=== PATIENT | female | born 1980 | race African-American/Black ===

== ENCOUNTER 2016-11-19 05:00 | Day surgery (SDC) | payer OTHER ==
[2016-10-31 12:02] VITALS: BMI 30.2
[2016-11-19] MEDS ORDERED: DEXAMETHASONE SOD PHOSPHATE 4 MG/1 ML VIAL ONE ×2 (07:58→08:29)
[2016-11-19] MEDS ORDERED: PROPOFOL 20 ML ONE ×2 (07:58→09:01)
[2016-11-19] MEDS ORDERED: ROCURONIUM BROMIDE 50 MG/5 ML VIAL ONE (07:58)
[2016-11-19] MEDS ORDERED: MIDAZOLAM HCL 2 MG/2 ML SINGLE DOSE VIAL ONE (07:59)
[2016-11-19] MEDS ORDERED: IBUPROFEN 800 MG/8 ML IJ IVPB PRN (08:16)
[2016-11-19] MEDS ORDERED: ACETAMINOPHEN 325 MG TABLET (FP) PO PRN (08:16)
--- NOTE | 2016-11-19 08:16 | HP ---
History & Physical Update - History History: No Change - Physical Physical: No Change - Assessment Assessment: No Change - Plan Plan: No Change (desires sterilization - for bilateral salpingectomy)
[2016-11-19] MEDS ORDERED: BUPIVACAINE HCL/PF 0.5% (5MG/ML) 10 ML VIAL ONE (08:23)
[2016-11-19] MEDS ORDERED: LACTATED RINGERS SOLUTION 1,000 ML IV SCH ×2 (08:30→09:30)
[2016-11-19] MEDS ORDERED: BUPIVACAINE HCL/PF 0.5% (5MG/ML) 10 ML VIAL IJ ONE (08:50)
[2016-11-19] MEDS ORDERED: GLYCOPYRROLATE 0.2 MG/1 ML VIAL ONE (08:54)
[2016-11-19] MEDS ORDERED: NEOSTIGMINE METHYLSULFATE 0.5 MG/ML - 10 ML MDV ONE (08:54)
[2016-11-19] MEDS ORDERED: ONDANSETRON 4 MG/2 ML VIAL IVPUSH PRN (09:17)
[2016-11-19] MEDS ORDERED: PROMETHAZINE HCL 25 MG/1 ML VIAL IVPUSH PRN (09:17)
[2016-11-19] MEDS ORDERED: oxyCODONE HCL 5 MG TABLET PO PRN (09:17)
--- NOTE | 2016-11-19 09:23 | SURG ---
Surgery Pharmacy Benefit Manager Note Pharmacy Benefit Manager: Cydney Wang PA-C Date of Service: 11/19/16 Diagnosis: desired sterilization Procedure: bilateral laparoscopic salpingectomy I was present for the entirety of the operative procedure. For further detail, please refer to operative report. Visit type - Case Type Case Type: Scheduled Admission - Emergency Emergency Visit: No - New patient This patient is new to me today: Yes Date on this admission: 11/19/16 - Critical Care Critical Care patient: No
--- NOTE | 2016-11-19 11:47 | OP ---
Operative Note - Note: Operative Date: 11/19/16 Pre-Operative Diagnosis: desire for permanent sterilization Operation: laparoscopic bilateral salpingectomy Surgeon: Jeniffer Clarke Cook Apprentice Pastry: Cydney Wang Anesthesiologist/CIVIL PROCESS SERVER: Ina Perla Anesthesia: General Specimens Removed: bilateral fallopian tubes Estimated Blood Loss (mls): 10 Operative Report Dictated: Yes
[2016-11-19 13:22] VITALS: BP 110/68; PULSE 74; TEMP 98.6
--- NOTE | 2016-11-20 12:34 | PATH ---
Surgical Pathology Report Patient Name: NATALIA PARHAM [facility]. Rec. #: [id number] /Age/Gender: 1980 (Age: 36) / F Account: [id number] Location: [facility] SURGICAL Taken: 11/19/2016 Received: 11/19/2016 Reported: 11/20/2016 Physicians: Jeniffer Clarke M.D. Specimen(s) Received A: RIGHT FALLOPIAN TUBE B: LEFT FALLOPIAN TUBE Clinical History Voluntary sterilization Final Diagnosis A. RIGHT FALLOPIAN TUBE, SALPINGECTOMY: FULL LUMINAL PORTION OF UNREMARKABLE FALLOPIAN TUBE, INCLUDING FIMBRIATED END. B. LEFT FALLOPIAN TUBE, SALPINGECTOMY: FULL LUMINAL PORTION OF FALLOPIAN TUBE INCLUDING FIMBRIATED END AND BENIGN SEROUS PARATUBAL CYST Electronically Signed Moose Perez M.D. Gross Description A. Received in formalin labeled "right fallopian tube," is a 6 cm in length fimbriated fallopian tube. The outer surface is allen purple and smooth. Sectioning reveals an unremarkable lumen. Biochemistry Teacher sections are submitted in 2 cassettes as follows: 1-fimbria; 2-cross sections of fallopian tube. B. Received in formalin labeled "left fallopian tube," is a 4.5 cm in length fimbriated fallopian tube. The outer surface is allen purple and smooth with a focal 0.6 cm in greatest dimension paratubal cyst attached to the fimbria. Sectioning reveals an unremarkable lumen. Biochemistry Teacher sections are submitted in 2 cassettes as follows: 1-fimbria with paratubal cyst; 2-cross sections of fallopian tube. 11/19/201611/19/2016
--- NOTE | 2016-11-20 16:58 | OP ---
DATE OF OPERATION: 11/19/2016 PREOPERATIVE DIAGNOSIS: Desire for permanent sterilization. POSTOPERATIVE DIAGNOSIS: Desire for permanent sterilization. PROCEDURE: Laparoscopic bilateral salpingectomy. SURGEON: Jeniffer Clarke M.D. CLINICAL LAW PROFESSOR: Jazmín Singleton ESTIMATED BLOOD LOSS: Minimal. COMPLICATIONS: None. SPECIMEN: Included bilateral fallopian tube sent to pathology for permanent evaluation. ANESTHESIA: General. ANESTHESIOLOGIST: Ina Perla M.D. DISPOSITION: Stable to PACU. COUNTS: Sponge, needle, and instrument count reported to be correct. BRIEF HISTORY AND PROCEDURE: Patient is a 36-year-old female who had been seen in the office with desire for permanent sterilization. The patient was counseled on her options and elected to undergo a laparoscopic bilateral salpingectomy. Consents were signed in the office which were then reconfirmed upon admission of November 19, 2016 on the day that she was admitted to [facility]. After consents were confirmed, the patient was taken back to the operating room. She was given general anesthesia by Dr. Perla, and she was then placed in the dorsal lithotomy position. A Viera catheter was placed under sterile conditions, she was then prepped and draped in the usual sterile fashion. A hard timeout was performed. A 5-mm skin incision was then placed in the umbilicus and Veress needle was placed intraabdominally. The abdomen was insufflated with CO2 gas, a trocar was then inserted through the 5-mm port and a camera was inserted in the abdomen. Next, two bilateral lower quadrant 5-mm ports were placed under direct visualization. The patient was placed in Trendelenburg position. The right fallopian tube was identified, traced to its fimbriated end , elevated, and dissected off its attachment to the ovary, mesosalpinx, and the uterus using the Ligasure device. The same was repeated with the left fallopian tube. Both fallopian tubes were removed from the 5-mm trocar site without difficulty under direct visualization. Excellent hemostasis was achieved at the surgical sites. Bilateral ureters were inspected and noted to be within normal limits. Bilateral ovaries were inspected and noted to be within normal limits. Inspection of the upper abdomen revealed no intraabdominal pathology. Next, the abdomen was desufflated. The trocars were removed. All instruments had been removed from the abdomen under direct visualization. The counts were reported to be correct. The incisions were reapproximated using Biosyn suture and then Dermabond skin glue. Sponge, needle and instrument counts were reported to be correct at the end of the case. The patient tolerated the procedure well, is recovering in stable condition in PACU after the procedure. JENIFFER CLARKE DO /[id number] MTDD
== END 2016-11-19 11:45 | disposition home or self-care (01) ==
LOC: JASU-SURG 05:00
PROVIDERS: ATTEND Obstetrics & Gynecology
PROC: 0U574ZZ Destruction of Bilateral Fallopian Tubes, Percutaneous Endoscopic Approach (ICD-10-PCS; principal; 2016-11-19 08:00)
DX: Z30.2 Encounter for sterilization (principal)
CPT/HCPCS: 36415; 84702; 86850; 86900; 86901; 88302-TC; 94760

== ENCOUNTER 2017-03-25 10:42 | Emergency (ER) | payer OTHER ==
[2017-03-25 10:50] VITALS: BP 137/74; PULSE 86; TEMP 98; BMI 33.3
[2017-03-25 12:07] LABS: URINE APPEARANCE SLCLOUDY; URINE BILIRUBIN NEGATIVE (NEGATIVE); URINE BLOOD 3+ (NEGATIVE); URINE COLOR YELLOW; URINE GLUCOSE (UA) NEGATIVE (NEGATIVE); URINE KETONE NEGATIVE (NEGATIVE); URINE NITRITE NEGATIVE (NEGATIVE); URINE PROTEIN NEGATIVE (NEGATIVE); URINE UROBILINOGEN NEGATIVE mg/dL (0.2-1.0)
[2017-03-25 12:11] LABS: URINE LEUK ESTERASE 2+ (NEGATIVE)
--- NOTE | 2017-03-25 12:20 | PDOC ---
History of Present Illness - General Chief Complaint: Pain Stated Complaint: BACK PAIN Time Seen by Provider: 03/25/17 11:49 History Source: Patient Exam Limitations: No Limitations - History of Present Illness Initial Comments: 03/25/17 12:44 My Chief complaint: Lower back pain and lower abdominal discomfort History of present illness: Patient is a 36-year-old female with no significant medical history here today complaining of lower back pain with lower abdominal discomfort 3 days. Patient reports having slight dysuria at the end of urination and frequency 3 days. Patient reports that she finished her menstrual cycle yesterday and has minimal bleeding when wiping. Patient also reports having urgency. Patient denies any nausea, vomiting or any chills or fever. Patient denies any radiation of pain down the legs or any saddle anesthesia or incontinency. Timing/Duration: intermittent Severity: moderate Associated Symptoms: reports: other (lower back and lower pelvic pressure intermittently for 3 days) Past History - Past Medical History Allergies/Adverse Reactions: Allergies Allergy/AdvReac Type Severity Reaction Status Date / Time No Known Allergies Allergy Verified 03/25/17 10:50 Home Medications: Ambulatory Orders Cephalexin [Keflex] 500 mg PO BID #14 capsule 03/25/17 Phenazopyridine HCl [Pyridium] 200 mg PO TID #6 tablet 03/25/17 Diabetes: Yes (gestational diabetes 1st ) - Reproductive History (#): 3 Para: 2 - Psycho/Social/Smoking Cessation Hx Anxiety: No Suicidal Ideation: No Smoking Status: No Smoking History: Never smoked Have you smoked in the past 12 months: No Number of Cigarettes Smoked Daily: 0 Information on smoking cessation initiated: No Hx Alcohol Use: No Drug/Substance Use Hx: No Substance Use Type: None Review of Systems - Review of Systems Able to Perform ROS?: Yes Constitutional: No: Symptoms Reported HEENTM: No: Symptoms Reported, Dental Problems Cardiac (ROS): No: Symptoms Reported ABD/GI: No: Symptoms Reported : Yes: Dysuria, Frequency, Urgency. No: Flank Pain, Hematuria, Incontinence, Pain Musculoskeletal: No: Symptoms Reported Integumentary: No: Symptoms Reported Neurological: No: Symptoms reported *Physical Exam - Vital Signs Last Vital Signs Temp Pulse Resp BP Pulse Ox 98 F 86 18 137/74 99 03/25/17 10:44 03/25/17 10:44 03/25/17 10:44 03/25/17 10:44 03/25/17 10:44 - Physical Exam General Appearance: Yes: Appropriately Dressed Respiratory/Chest: positive: Lungs Clear, Normal Breath Sounds. negative: Chest Tender, Respiratory Distress Cardiovascular: positive: Regular Rhythm, Regular Rate, S1, S2 Gastrointestinal/Abdominal: positive: Normal Bowel Sounds, Soft. negative: Tender, Organomegaly, Distended, Guarding, Rebound, Tenderness Musculoskeletal: positive: Normal Inspection. negative: CVA Tenderness, CVA Tenderness (R), CVA Tenderness (L), Vertebral Tenderness Integumentary: positive: Normal Color Neurologic: positive: Alert, Responsive ED Treatment Course - ADDITIONAL ORDERS Additional order review: Laboratory Results 03/25/17 11:40 Urine Color Yellow Urine Appearance Slcloudy Urine pH 5.0 Urine Protein Negative Urine Glucose (UA) Negative Urine Ketones Negative Urine Blood 3+ H Urine Nitrite Negative Urine Bilirubin Negative Urine Urobilinogen Negative Ur Leukocyte Esterase 2+ H Urine HCG, Qual Negative Medical Decision Making - Medical Decision Making 03/25/17 12:46 Patient is a 36-year-old female with no significant medical history here today complaining of lower back pain with lower abdominal discomfort 3 days. Patient reports having slight dysuria at the end of urination and frequency 3 days. Patient reports that she finished her menstrual cycle yesterday and has minimal bleeding when wiping. Patient also reports having urgency. Patient denies any nausea, vomiting or any chills or fever. Patient denies any radiation of pain down the legs or any saddle anesthesia or incontinency. ACUTE CYSTITIS PLAN: KEFLEX 500MG BID FOR 7 DAYS PYRDIUM 200 MG TID FOR 2 DAYS URINALYSIS URINE C & S FOLLOW UP WITH PCP FOR REPEAT URINE TESTING AT END OF TREATMENT 03/25/17 12:48 *DC/Admit/Observation/Transfer Diagnosis at time of Disposition: Cystitis - Discharge Dispostion Disposition: HOME Condition at time of disposition: Stable - Patient Instructions Additional Instructions: Follow-up with your primary care provider for repeat urinanalysis after treatment is finished Drink A lot a fluids especially pure cranberry juice Return to emergency room if any fever, chills, or any new symptoms develop Patient voiced understanding of discharge instructions and all questions were answered
[2017-03-25 12:24] LABS: URINE MUCUS RARE; URINE RBC 3 /hpf (0-3); URINE WBC 4 /hpf (3-5)
== END 2017-03-25 12:49 | disposition home or self-care (01) ==
LOC: JERFT 10:42
DX: N30.00 Acute cystitis without hematuria (principal)
CPT/HCPCS: 81003; 81015; 84703; 87077; 87086; 87186; 99281-25

== ENCOUNTER 2017-05-07 01:44 | Emergency (ER) | payer OTHER ==
[2017-05-07 02:01] VITALS: BMI 34.9
--- NOTE | 2017-05-07 02:27 | PDOC ---
History of Present Illness - General Chief Complaint: Ear Problem Stated Complaint: SORE THROAT, EAR PAIN Time Seen by Provider: 05/07/17 02:04 History Source: Patient Exam Limitations: No Limitations - History of Present Illness Initial Comments: 05/07/17 02:21 36yo Female patient presents to ED c/o bilateral ear pain and throat pain beginning last . Patient states everyone in her household is sick with a cold and cough. She states symptoms not getting any better, so she came in for evaluation. She denies fever, CP, Abd pain, n/v/d, diff breathing or any other complaints at this time. Timing/Duration: constant Severity: mild Modifying Factors: worse with: cold therapy, eating, immobilization, medication , movement, rest, other Associated Symptoms: denies: denies symptoms, chest pain, cough, diaphoresis, fever/chills, headaches, loss of appetite, malaise, nausea/vomiting, rash, seizure, shortness of breath, syncope, weakness, other Past History - Travel Traveled outside of the country in the last 30 days: No Close contact w/someone who was outside of country & ill: No - Past Medical History Allergies/Adverse Reactions: Allergies Allergy/AdvReac Type Severity Reaction Status Date / Time No Known Allergies Allergy Verified 05/07/17 01:57 Home Medications: Ambulatory Orders Cephalexin [Keflex] 500 mg PO BID #14 capsule 03/25/17 Phenazopyridine HCl [Pyridium] 200 mg PO TID #6 tablet 03/25/17 Amoxicillin - [Amoxicillin 500mg Capsule -] 500 mg PO BID #14 capsule 05/07/17 Ibuprofen 600 mg PO Q6H PRN #20 tablet 05/07/17 Diabetes: Yes (gestational diabetes 1st ) - Reproductive History (#): 3 Para: 2 - Suicide/Smoking/Psychosocial Hx Smoking Status: No Smoking History: Never smoked Have you smoked in the past 12 months: No Number of Cigarettes Smoked Daily: 0 Information on smoking cessation initiated: No Hx Alcohol Use: No Drug/Substance Use Hx: No Substance Use Type: None Review of Systems - Review of Systems Able to Perform ROS?: Yes Is the patient limited Polish proficient: No Constitutional: No: Chills, Fever HEENTM: Yes: Ear Pain, Throat Pain. No: Mouth Pain, Mouth Swelling All Other Systems: Reviewed and Negative *Physical Exam - Vital Signs Last Vital Signs Temp Pulse Resp BP Pulse Ox 96 H 14 123/82 95 05/07/17 01:57 05/07/17 01:57 05/07/17 01:57 05/07/17 01:57 - Physical Exam General Appearance: Yes: Nourished, Appropriately Dressed. No: Apparent Distress, Mild Distress, Moderate Distress, Severe Distress HEENT: positive: EOMI, LILIA, Normal ENT Inspection, Normal Voice, Symmetrical, TMs Normal, Pharynx Normal, Nasal Congestion, Sinus Tenderness (Mild). negative : Pharyngeal Erythema, Tonsillar Exudate, Tonsillar Erythema, Rhinorrhea, TM Bulging, TM Dull, TM Erythema Neck: positive: Trachea midline, Normal Thyroid, Supple. negative: Rigid, Stridor, Lymphadenopathy (R), Lymphadenopathy (L), Rigidity, Tender lateral, Tender midline Respiratory/Chest: positive: Lungs Clear, Normal Breath Sounds. negative: Chest Tender, Respiratory Distress, Accessory Muscle Use, Labored Respiration, Rapid RR Cardiovascular: positive: Regular Rhythm, Regular Rate Musculoskeletal: positive: Normal Inspection. negative: CVA Tenderness Extremity: positive: Normal Capillary Refill, Normal Inspection, Normal Range of Motion. negative: Pedal Edema, Swelling, Calf Tenderness, Erythema, Inflammation Integumentary: positive: Normal Color, Dry, Warm Neurologic: positive: marketing and development coordinator II-XII NML intact, Fully Oriented, Alert, Normal Mood/ Affect, Normal Response, Motor Strength 5/5 *DC/Admit/Observation/Transfer Diagnosis at time of Disposition: Pharyngitis Qualifiers: Pharyngitis/tonsillitis etiology: other specified organisms Qualified Code(s): J02.8 - Acute pharyngitis due to other specified organisms; J02.8 - Acute pharyngitis due to other specified organisms - Discharge Dispostion Disposition: HOME Condition at time of disposition: Stable Admit: No - Prescriptions Prescriptions: Amoxicillin - [Amoxicillin 500mg Capsule -] 500 mg PO BID #14 capsule Ibuprofen 600 mg PO Q6H PRN #20 tablet PRN Reason: Mild Pain - Patient Instructions Printed Discharge Instructions: DI for Viral Pharyngitis Additional Instructions: Follow up with your primary care provider. Take medications as prescribed. Drink plenty water. Gargle with salt water twice a day. Print Language: WELSH
[2017-05-07] MEDS ORDERED: IBUPROFEN 600 MG TABLET (FP) PO ONE ×2 (02:29→02:41)
[2017-05-07] MEDS ORDERED: AMOXICILLIN 500 MG CAPSULE (FP) PO ONE (02:29)
[2017-05-07] MEDS ORDERED: AMOXICILLIN 500 MG CAPSULE (FP) ONE (02:41)
[2017-05-07 02:50] VITALS: BP 124/85; PULSE 84
== END 2017-05-07 02:51 | disposition home or self-care (01) ==
LOC: JER 01:44
DX: J02.8 Acute pharyngitis due to other specified organisms (principal)
CPT/HCPCS: 99281-25; 99282-25

== ENCOUNTER → 2020-10-12 | Day surgery (SDC) | payer OTHER ==
[2020-10-06 15:46] VITALS: BMI 30.2
[2020-10-12 09:08] VITALS: TEMP 96.9
[2020-10-12 09:58] VITALS: BP 118/85; PULSE 70
== END | disposition home or self-care (01) ==
LOC: JASU-ENDO 05:29
PROVIDERS: ATTEND Internal Medicine Gastroenterology
PROC: 0DBB8ZX Excision of Ileum, Via Natural or Artificial Opening Endoscopic, Diagnostic (ICD-10-PCS; 2020-10-12)
PROC: 0DBN8ZX Excision of Sigmoid Colon, Via Natural or Artificial Opening Endoscopic, Diagnostic (ICD-10-PCS; 2020-10-12)
PROC: 0DB98ZX Excision of Duodenum, Via Natural or Artificial Opening Endoscopic, Diagnostic (ICD-10-PCS; 2020-10-12)
PROC: 0DB78ZX Excision of Stomach, Pylorus, Via Natural or Artificial Opening Endoscopic, Diagnostic (ICD-10-PCS; 2020-10-12)
PROC: 0DBM8ZX Excision of Descending Colon, Via Natural or Artificial Opening Endoscopic, Diagnostic (ICD-10-PCS; principal; 2020-10-12 08:22)
DX: K63.5 Polyp of colon (principal); K64.8 Other hemorrhoids; K44.9 Diaphragmatic hernia without obstruction or gangrene; K29.00 Acute gastritis without bleeding; K21.9 Gastro-esophageal reflux disease without esophagitis; K56.609 Unspecified intestinal obstruction, unspecified as to partial versus complete obstruction; K63.89 Other specified diseases of intestine; K92.1 Melena; E11.9 Type 2 diabetes mellitus without complications; Z79.84 Long term (current) use of oral hypoglycemic drugs
CPT/HCPCS: 81025; 88305-TC; 88342-TC

== ENCOUNTER 2021-02-22 08:52 | Emergency (ER) | payer OTHER ==
[2021-02-22 09:17] VITALS: BP 130/79; PULSE 74; TEMP 98.2; BMI 28.3
[2021-02-22] MEDS ORDERED: ACETAMINOPHEN 325 MG TABLET (FP) ONE (10:13)
[2021-02-22] MEDS ORDERED: ACETAMINOPHEN 325 MG TABLET (FP) PO ONE (10:14)
[2021-02-22 10:21] LABS: MEAN PLT VOLUME 6.9 fl (7.5-11.1)
[2021-02-22 10:23] LABS: BASO % 1.3 % (0-2.0); EOS % 0.4 % (0-4.5); HEMATOCRIT 38.8 % (32.4-45.2); HEMOGLOBIN 13.2 GM/dL (10.7-15.3); LYMPH % 43.8 % (8-40); MEAN CELL VOLUME 73.6 fl (80-96); MONO % 7.4 % (3.8-10.2); NEUT % 47.1 % (42.8-82.8); PLATELET COUNT 463 10^3/uL (134-434); RBC 5.27 M/mm3 (3.60-5.2); RDW 19.2 % (11.6-15.6); WHITE BLOOD COUNT 6.5 K/mm3 (4.0-10.0)
[2021-02-22 10:24] LABS: EPI CELLS 19 /uL (0-25.1); HYALINE CASTS 0 /uL (0-3.1); PH,URINE 5.5 (5.0-8.0); URINE APPEARANCE CLEAR; URINE BACTERIA 320 /uL (0-1359); URINE BILIRUBIN NEGATIVE (NEGATIVE); URINE COLOR YELLOW; URINE GLUCOSE (UA) NEGATIVE (NEGATIVE); URINE KETONE 1+ (NEGATIVE); URINE LEUK ESTERASE TRACE (NEGATIVE); URINE NITRITE NEGATIVE (NEGATIVE); URINE PROTEIN NEGATIVE (NEGATIVE); URINE RBC 6 /uL (0-23.9); URINE UROBILINOGEN 0.2 mg/dL (0.2-1.0); URINE WBC 12 /uL (0-25.8)
[2021-02-22 10:27] LABS: INR 1.05 (0.83-1.09); PROTHROMBIN TIME (PATIENT) 12.9 SEC (9.7-13.0)
[2021-02-22 10:30] LABS: ACTIVATED PTT 28.6 SECONDS (25.2-36.5); CHLORIDE 105 mmol/L (98-107); SODIUM 139 mmol/L (136-145)
[2021-02-22 10:32] LABS: ALBUMIN 3.8 g/dl (3.4-5.0); ANION GAP 7 MMOL/L (8-16); BLOOD UREA NITROGEN 8.1 mg/dL (7-18); CALCIUM 9.2 mg/dL (8.5-10.1); CO2 27 mmol/L (21-32); GLUCOSE,RANDOM 81 mg/dL (74-106)
[2021-02-22 10:35] LABS: CREATININE 0.8 mg/dL (0.55-1.3); SGOT/AST 21 U/L (15-37); SGPT/ALT 26 U/L (13-61)
[2021-02-22 10:37] LABS: BILIRUBIN,TOTAL 0.4 mg/dL (0.2-1); TOT PROT 8.1 g/dl (6.4-8.2)
[2021-02-22 10:38] LABS: ALK PHOS 107 U/L (45-117)
== END 2021-02-22 12:10 ==
LOC: JER 08:52
DX: R55 Syncope and collapse (principal)
CPT/HCPCS: 36415; 71045-TC-FY; 80053; 81003; 84484; 84703; 85025; 85610; 85730; 87086; 93005; 93010; 99285-25

== ENCOUNTER 2022-01-24 01:03 | Emergency (ER) | payer OTHER ==
[2022-01-24 01:42] VITALS: BP 111/59; PULSE 85; TEMP 99; BMI 31.1
[2022-01-24] MEDS ORDERED: ACETAMINOPHEN 500 MG TABLET (FP) PO ONE (01:50)
[2022-01-24] MEDS ORDERED: ACETAMINOPHEN 500 MG TABLET (FP) ONE (01:56)
== END 2022-01-24 03:44 | disposition home or self-care (01) ==
LOC: JER 01:03
DX: U07.1 COVID-19 (principal)
CPT/HCPCS: 0241U-QW; 87651; 99283-25

== ENCOUNTER 2022-04-09 07:15 | Emergency (ER) | payer OTHER ==
[2022-04-09 07:43] VITALS: BP 100/70; PULSE 76; RESP 20; TEMP 98.7; BMI 31.1
[2022-04-09] MEDS ORDERED: IBUPROFEN 600 MG TABLET (FP) PO ONE ×3 (08:21→08:39)
[2022-04-09] MEDS ORDERED: LIDOCAINE 5% TOPICAL PATCH TP ONE (08:21)
[2022-04-09] MEDS ORDERED: LIDOCAINE 5% TOPICAL PATCH ONE (08:40)
[2022-04-09] MEDS ORDERED: LIDOCAINE PATCH REMOVAL MC ONE (22:00)
== END 2022-04-09 09:06 | disposition home or self-care (01) ==
LOC: JERFT 07:15 → JER 07:15 → JERFT 09:06
DX: M25.511 Pain in right shoulder (principal); G89.29 Other chronic pain
CPT/HCPCS: 73030-TC-RT-FY; 99284-25

== ENCOUNTER 2022-04-26 02:41 | Emergency (ER) | payer OTHER ==
[2022-04-26 02:55] VITALS: BP 109/74; PULSE 83; RESP 17; TEMP 98; BMI 31.1
[2022-04-26] MEDS ORDERED: ACETAMINOPHEN 325 MG TABLET (FP) PO ONE (03:49)
[2022-04-26] MEDS ORDERED: ACETAMINOPHEN 325 MG TABLET (FP) ONE (04:39)
== END 2022-04-26 04:42 | disposition home or self-care (01) ==
LOC: JER 02:41
DX: S06.0X0A Concussion without loss of consciousness, initial encounter (principal); W22.8XXA Striking against or struck by other objects, initial encounter
CPT/HCPCS: 99283-25

== ENCOUNTER 2023-01-07 17:47 | Emergency (ER) | payer OTHER ==
[2023-01-07 17:55] VITALS: BP 105/62; PULSE 70; RESP 18; TEMP 99.2; BMI 27.6
[2023-01-07] MEDS ORDERED: MAG HYDROX/AL HYDROX/SIMETH 30 ML UNIT-DOSE CUP PO ONE (19:02)
[2023-01-07] MEDS ORDERED: PANTOPRAZOLE 40 MG TABLET PO ONE ×2 (19:02→19:54)
[2023-01-07] MEDS ORDERED: FAMOTIDINE 20 MG TABLET PO ONE (19:03)
[2023-01-07] MEDS ORDERED: FAMOTIDINE 20 MG TABLET ONE (19:54)
[2023-01-07] MEDS ORDERED: MAG HYDROX/AL HYDROX/SIMETH 30 ML UNIT-DOSE CUP ONE (19:54)
[2023-01-07 20:31] LABS: BASO % 0.8 % (0-2.0); EOS % 1.1 % (0-4.5); HEMATOCRIT 40.4 % (32.4-45.2); HEMOGLOBIN 13.4 GM/dL (10.7-15.3); LYMPH % 55.8 % (8-40); MCH 26.5 pg (25.7-33.7); MCHC 33.1 g/dl (32.0-36.0); MEAN CELL VOLUME 80.1 fl (80-96); MEAN PLT VOLUME 7.3 fl (7.5-11.1); MONO % 6.4 % (3.8-10.2); NEUT % 35.9 % (42.8-82.8); PLATELET COUNT 412 10^3/uL (134-434); RBC 5.04 M/mm3 (3.60-5.2); WHITE BLOOD COUNT 7.1 K/mm3 (4.0-10.0)
[2023-01-07 20:44] LABS: POTASSIUM 4.8 mmol/L (3.5-5.1)
[2023-01-07 20:47] LABS: ALBUMIN 3.6 g/dl (3.4-5.0); BLOOD UREA NITROGEN 6.7 mg/dL (7-18); CALCIUM 9.3 mg/dL (8.5-10.1)
[2023-01-07 20:50] LABS: CREATININE 0.7 mg/dL (0.55-1.3)
[2023-01-07 20:53] LABS: BILIRUBIN,TOTAL 0.8 mg/dL (0.2-1); TOT PROT 7.4 g/dl (6.4-8.2)
== END 2023-01-07 21:47 | disposition home or self-care (01) ==
LOC: JER 17:47
DX: R10.13 Epigastric pain (principal); K29.50 Unspecified chronic gastritis without bleeding
CPT/HCPCS: 36415; 80053; 83690; 85025; 99283-25

== ENCOUNTER 2023-02-23 07:56 | Emergency (ER) | payer OTHER ==
[2023-02-23 08:05] VITALS: RESP 19; TEMP 98.3; BMI 27.2
[2023-02-23] MEDS ORDERED: MECLIZINE HCL 12.5 MG TABLET PO ONE ×2 (08:46→10:29)
[2023-02-23] MEDS ORDERED: SODIUM CHLORIDE 0.9% 500 ML INFUS.BAG IV ONE (08:48)
[2023-02-23] MEDS ORDERED: MECLIZINE HCL 12.5 MG TABLET ONE (09:41)
[2023-02-23 10:12] LABS: BASO % 1.1 % (0-2.0); EOS % 0.7 % (0-4.5); HEMATOCRIT 40.7 % (32.4-45.2); HEMOGLOBIN 13.5 GM/dL (10.7-15.3); LYMPH % 41.1 % (8-40); MCH 26.8 pg (25.7-33.7); MCHC 33.2 g/dl (32.0-36.0); MEAN CELL VOLUME 80.7 fl (80-96); MONO % 6.2 % (3.8-10.2); NEUT % 50.9 % (42.8-82.8); PLATELET COUNT 440 10^3/uL (134-434); RBC 5.04 M/mm3 (3.60-5.2); WHITE BLOOD COUNT 6.2 K/mm3 (4.0-10.0)
[2023-02-23 10:15] LABS: EPI CELLS 11 /uL (0-25.1); HYALINE CASTS 0 /uL (0-3.1); PH,URINE 7.5 (5.0-8.0); URINE APPEARANCE CLEAR; URINE BACTERIA 29 /uL (0-1359); URINE BILIRUBIN NEGATIVE (NEGATIVE); URINE COLOR YELLOW; URINE GLUCOSE (UA) NEGATIVE (NEGATIVE); URINE KETONE NEGATIVE (NEGATIVE); URINE LEUK ESTERASE TRACE (NEGATIVE); URINE NITRITE NEGATIVE (NEGATIVE); URINE PROTEIN NEGATIVE (NEGATIVE); URINE RBC 1568 /uL (0-23.9); URINE UROBILINOGEN 0.2 mg/dL (0.2-1.0); URINE WBC 8 /uL (0-25.8)
[2023-02-23 10:23] LABS: POTASSIUM 4.3 mmol/L (3.5-5.1)
[2023-02-23 10:25] LABS: ALBUMIN 3.4 g/dl (3.4-5.0); BLOOD UREA NITROGEN 9.1 mg/dL (7-18); CALCIUM 9.3 mg/dL (8.5-10.1)
[2023-02-23 10:28] LABS: CREATININE 1.1 mg/dL (0.55-1.3)
[2023-02-23 10:30] LABS: BILIRUBIN,TOTAL 0.3 mg/dL (0.2-1); TOT PROT 7.3 g/dl (6.4-8.2)
[2023-02-23] MEDS ORDERED: LACTATED RINGERS SOLUTION 1,000 ML/1,000 ML INFUS.BAG IV SCH (10:30)
[2023-02-23 13:02] VITALS: BP 121/78; PULSE 68
== END 2023-02-23 14:24 | disposition home or self-care (01) ==
LOC: JER 07:56
DX: R42 Dizziness and giddiness (principal)
CPT/HCPCS: 36415; 70450-TC; 80053; 81003; 82962; 84703; 85025; 87086; 93005; 93010; 99284-25

== ENCOUNTER 2023-11-23 12:27 | Emergency (ER) | payer OTHER ==
[2023-11-23] MEDS ORDERED: IBUPROFEN 600 MG TABLET (FP) PO ONE (12:48)
[2023-11-23] MEDS ORDERED: METHOCARBAMOL 500 MG TABLET ONE (12:48)
[2023-11-23] MEDS ORDERED: LIDOCAINE 5% TOPICAL PATCH ONE (12:48)
[2023-11-23 12:50] VITALS: BP 118/74; PULSE 80; RESP 16; TEMP 97.8; BMI 27.4
[2023-11-23] MEDS: IBUPROFEN 600 MG TABLET (FP) PO ONE (12:50)
[2023-11-23] MEDS: METHOCARBAMOL 500 MG TABLET PO ONE (12:50)
[2023-11-23] MEDS: LIDOCAINE 5% TOPICAL PATCH TP ONE (12:54)
[2023-11-23] MEDS ORDERED: LIDOCAINE PATCH REMOVAL MC SCH (22:00)
== END 2023-11-23 13:02 | disposition home or self-care (01) ==
LOC: FER 12:27
DX: M54.2 Cervicalgia (principal); R51.9 Headache, unspecified; S16.1XXA Strain of muscle, fascia and tendon at neck level, initial encounter; X50.9XXA Other and unspecified overexertion or strenuous movements or postures, initial encounter
CPT/HCPCS: 99283-25

== ENCOUNTER 2024-02-10 09:46 | Emergency (ER) | payer OTHER ==
[2024-02-10 10:18] VITALS: BP 118/81; PULSE 86; RESP 16; TEMP 98.1; BMI 28.5
[2024-02-10] MEDS ORDERED: valACYclovir HCL 500 MG TABLET (FP) ONE (10:19)
[2024-02-10] MEDS: valACYclovir HCL 500 MG TABLET (FP) PO ONE (10:36)
== END 2024-02-10 10:37 | disposition home or self-care (01) ==
LOC: FER 09:46
DX: R21 Rash and other nonspecific skin eruption (principal); L29.9 Pruritus, unspecified; B02.9 Zoster without complications; R53.83 Other fatigue
CPT/HCPCS: 99283-25